=== PATIENT | female | born 1995 | race Caucasian/White ===

== ENCOUNTER 2016-09-13 09:17 | Outpatient (CLI) | payer MEDICAID, OTHER ==
[~2016-09-13] VITALS: Ht 160 cm; Wt 67.1 kg
[2016-09-13] MEDS ORDERED: PRENAT PO (09:38)
[2016-09-13 09:39] VITALS: Ht 160 cm; Wt 67.1 kg
--- NOTE | 2016-09-13 10:07 | TRIAGE ---
OB Triage Datetime Report Generated by CPN: 09/13/2016 10:06 Datetime: 09/13/2016 09:49 Stage of : OB Triage Datetime: 09/13/2016 09:30 Stage of : OB Triage Assessment Type: Triage Maternal Assessment Level of Consciousness: Fully Conscious DTR's/Clonus: DTRs 2+; No Clonus Headache: Denies Blurred Vision: No Respiratory Effort: Unlabored; Regular Rhythm; Equal Expansion Breath Sounds, Left: Clear and Equal Breath Sounds, Right: Clear and Equal Nausea/Vomiting: Denies RUQ Epigastric Pain: Denies Lower Extremities Edema: None Degree: None Upper Extremities Edema: None Degree: None Facial Edema: None Temperature Route: Axillary Fall Risk Assessment History of Falling: (0) No Secondary Diagnosis: (0) No Ambulatory Aid: (0) Bedrest/Nurse Assist IV Therapy: (0) No Gait: (0) Normal/Bedrest/Immobile Mental Status: (0) Oriented to Own Ability Fall Score: 0 Fall Risk Score Definition: No Risk: No action required Labor Evaluation Frequency: X1 Monitor Mode: External Duration (sec)2399: 20 Quality: Mild Pattern: Normal: <= 5 Contractions in 10 Minutes Resting Tone [place]: Relaxed Interventions: Sterile Vaginal Exam Heart Rate FHR Baseline Rate: 135 Monitor Mode: External US Variability: Moderate 6-25 bpm Decelerations: None Category: Category I Pain Assessment Pain Scale: 0 Pain Presence: None/Denies Pain Type: N/A Pain Location: [facility] HAD PAIN DURING NIGHT BUT IT HAS STOPPED Pain Goal: 3 Pain Relief Measures: Comfort Measures Vaginal Exam Dilatation (cms): 0.0 Exam By: S LUCRECIA Membrane Status: Intact Datetime: 09/13/2016 09:29 Time of Arrival: 09/13/2016 09:15 EGA: 39.0 Arrived By: Ambulatory Arrived From: Home Chief Complaint: C/O UC'S LAST NIGHT APPROX Q2 MIN, DENIES BLEEDING OR LEAKING OF FLUID Movement: Present Contractions: Regular Contractions: Q2 Rupture of Membranes: Ruptured Vaginal Bleeding: None Vaginal Discharge: Denies Recent Sexual Intercouse: Denies Abdominal Trauma: Not Applicable Patient Complaints: Contractions; Cramping Time Provider Notified: 09/13/2016 09:50 Provider Notified: EMMY Initial Plan: MONITOR, VE Datetime: 06/13/2016 22:42 Fall Score: 0 Fall Risk Score Definition: No Risk: No action required Datetime: 06/13/2016 22:00 EGA: 25.6
--- NOTE | 2016-11-25 17:32 | DS ---
Date/Time of Note Date/Time of Note DATE: 11/25/16 TIME: 17:28 Obstetrical Discharge Record Final Diagnosis Final Diagnosis: Term not delivered Condition on Discharge Physical Assessment Last Vitals: vs stable,r/o labor not ln active labor bpp 8/8discharged home with followup instruction Voiding: Yes Bowel Movement: Yes Calf Tenderness: No Patient Condition: Good BRANDEE BOOTH MD November 25, 2016 17:32
== END 2016-09-13 09:59 | disposition home or self-care (01) ==
LOC: OBT 09:17 → L-D 09:18 → OBT 09:59
PROVIDERS: ATTEND Obstetrics & Gynecology
DX: O60.03 Preterm labor without delivery, third trimester (principal); Z3A.39 39 weeks gestation of pregnancy
CPT/HCPCS: G0463

== ENCOUNTER 2016-09-18 21:31 | Emergency (ER) | payer MEDICAID ==
[~2016-09-18] VITALS: Ht 160 cm; Wt 68.7 kg
[~2016-09-18 21:31] MED LIST: PRENAT PO
[2016-09-18 21:39] VITALS: Ht 160 cm; Wt 68.7 kg
[2016-09-18] MEDS ORDERED: AMO500 PO (21:57)
[2016-09-18] MEDS ORDERED: ACET500C5 PO (21:57)
--- NOTE | 2016-09-18 22:03 | ERD ---
ER Documentation Chief Complaint Date/Time DATE: 09/18/16 TIME: 21:59 Chief Complaint RIGHT EAR PAIN STARTING TODAY HPI 20-year-old female presents here in emergency complaints of right ear pain started today. Patient described pain as throbbing pain, 6/10 scale, not better or worse with anything. Patient did not take any medications to help with symptoms. Patient denies any ear discharge. Patient denies any problems with hearing. Patient denies any trauma in the ear. Patient denies any bloody discharge from the ear. Patient is approximately 8 weeks , patient does not complain of any abdominal pain, cramping, flank pain, vaginal bleeding, vaginal discharge. Patient does not have any issues or complaints at this time. ROS All systems reviewed and are negative except as per history of present illness. Medications Home Meds Active Scripts Acetaminophen* (Tylophen*) 500 Mg Capsule, 1 CAP PO Q6H Y for PAIN AND OR ELEVATED TEMP, #20 CAP Prov:MARIZOL HARPER [employer] 09/18/16 Amoxicillin* (Amoxicillin*) 500 Mg Cap, 500 MG PO TID for 10 Days, CAP Prov:MARIZOL HARPER [employer] 09/18/16 Reported Medications Multivit/Min/Fol Ac/Iron/Pren* ( S*) 1 Tab Tab, 1 TAB PO DAILY, TAB 09/13/16 Allergies Allergies: Coded Allergies: No Known Allergy (Unverified , 02/06/16) PMhx/Soc Medical and Surgical Hx: pt denies Medical Hx, pt denies Surgical Hx Hx Alcohol Use: No Hx Substance Use: No Hx Tobacco Use: No FmHx Family History: No coronary disease, No diabetes, No other Physical Exam Vitals Vital Signs Date Time Temp Pulse Resp B/P Pulse Ox O2 Delivery O2 Flow Rate FiO2 09/18/16 21:39 96.8 75 16 120/72 99 Physical Exam GENERAL: The patient is well developed and appropriate for usual state of health, in no apparent distress. HEENT: Atraumatic. Ears: Right ear tympanic membrane is noted to be erythematous and bulging. Normal left tympanic membrane, no erythema or bulging. No ear canal swelling. No ear discharge. Nose: normal nasal turbinates , no erythema or swelling. Normal nasal discharge. Throat: oropharynx clear. No tonsillar swelling or tonsillar exudates. No lymphadenopathy. CHEST: Clear to auscultation bilaterally. There are no rales, wheezes or rhonchi. HEART: Regular rate and rhythm. No murmurs, clicks, rubs or gallops. No S3 or S4. ABDOMEN: Soft, nontender and nondistended. Good bowel sounds. No rebound or guarding. No gross peritonitis. No gross organomegaly or masses. No Rich sign or McBurney point tenderness. BACK: No midline or flank tenderness. EXTREMITIES: Equal pulses bilaterally. There is no peripheral clubbing, cyanosis or edema. No focal swelling or erythema. Full range of motion. Grossly neurovascularly intact. NEURO: Alert and oriented. Cranial nerves 2-12 intact. Motor strength in all 4 extremities with 5/5 strength. Sensation grossly intact. Normal speech and gait. SKIN: There is no apparent rash or petechia. The skin is warm and dry. HEMATOLOGIC AND LYMPHATIC: There is no evidence of excessive bruising or lymphedema. No gross cervical, axillary, or inguinal lymphadenopathy. Procedures/MDM Medical decision making: Patient's symptoms most likely consistent with right otitis media. No symptoms of otitis externa or mastoiditis. No foreign body in the ear. No cerumen impaction. No tympanic membrane perforation noted. Prescription is given for amoxicillin, Tylenol, safe for , category B. Patient was advised to avoid using Q-tips to clean the ear. Patient was advised to go to labor and delivery for any issues her complains or labor symptoms, patient was advised to follow with primary care doctor in 2-3 days for reevaluation of symptoms. Patient was advised to return to emergency department for any worsening symptoms. Departure Diagnosis: Primary Impression: Right otitis media Otitis media type: serous Chronicity: acute Recurrence: not specified as recurrent Qualified Code: H65.01 - Right acute serous otitis media, recurrence not specified Condition: Stable Patient Instructions: Otitis Media, Abx Tx (Adult) MARIZOL HARPER NP Sep 18, 2016 22:02
== END 2016-09-18 21:33 | disposition home or self-care (01) ==
LOC: E/R 21:31
DX: H65.01 Acute serous otitis media, right ear (principal)
CPT/HCPCS: 99283

== ENCOUNTER 2016-09-26 03:05 | Inpatient (IN) | payer MEDICAID ==
[~2016-09-26] VITALS: Ht 160 cm; Wt 69.1 kg
[~2016-09-26 03:05] MED LIST changes: +ACET500C5 PO; +AMO500 PO
[2016-09-26 03:32] VITALS: BP 120/69; PULSE 80; RESP 18
[2016-09-26] MEDS ORDERED: FERR325C PO (03:35)
--- NOTE | 2016-09-26 04:39 | RADRPT ---
PROCEDURE: OB ultrasound for biophysical profile CLINICAL INDICATION: Post dates TECHNIQUE: Multiple sonographic images of the pelvis were obtained. Transabdominal view of the gr avid uterus are available for review. The images were reviewed on a PACS workstation. COMPARISON: OB ultrasound of 09/26/2016 FINDINGS: breathing movement = 2/2 tone = 2/2 motion = 2/2 AMY = 2/2 AMY = 10.1 cm Single live intrauterine in cephalic position with cardiac activity at 137 beats per minute. The placenta is anterior and grade III. IMPRESSION: 1. Single live intrauterine gestation. 2. Biophysical profile = 8. 3. AMY = 10.1 cm. RPTAT: HJES .Maycol Vasques MD, Date Time Electronically viewed and signed by .Maycol Vasques MD, on 09/26/2016 04:39 .S/
--- NOTE | 2016-09-26 04:48 | RADRPT ---
PROCEDURE: US OB. CLINICAL INDICATION: Post dates. Clinical estimated gestational age is 40 weeks 6 days with estimat ed date of delivery 09/20/2016 TECHNIQUE: Multiple sonographic images of the pelvis were obtained. Transabdominal imaging only w as performed. The images were reviewed on a PACS workstation. COMPARISON: Biophysical profile ultrasound of 09/26/2016 and OB ultrasound of 07/18/2016 FINDINGS: There is a single live intrauterine gestation. Cardiac activity is present with 129 beats per minut e. There is a cephalic presentation. Measurements were made in order to determine age. The results are as follows: BPD = 9.07 cm, 36 weeks 5 days HC = 32.76 cm, 37 weeks 1 day AC = 34.1 cm, 38 weeks 0 days FL = 7.67 cm, 39 weeks 2 days. Estimated gestational age of approximately 37 weeks 6 days. The estimated date of delivery is 10/11/2016. The EFW = 3379 g, 7 pounds 7 ounces, 21%. The placenta is anterior and grade 2/3. There is no evidence for an abruption. IMPRESSION: 1. Single live intrauterine gestation of approximately 37 weeks 6 days based on ultrasound measurem ents. 2. The estimated date of delivery is 10/11/2016. RPTAT: HJES .Maycol Vasques MD, Date Time Electronically viewed and signed by .Maycol Vasques MD, on 09/26/2016 04:48 .S/
[2016-09-26] MEDS ORDERED: CARBOPROST 250 MCG INJ IM PRN (06:30)
[2016-09-26] MEDS ORDERED: OXYTOCIN 30 UNITS/LR 500 ML IV SCH ×2 (06:30)
[2016-09-26] MEDS ORDERED: BUTORPHANOL 2 MG INJ IV PRN ×2 (06:30)
[2016-09-26] MEDS ORDERED: IBUPROFEN 600 MG TAB PO PRN (06:30)
[2016-09-26] MEDS ORDERED: LACTATED RINGER'S 1,000 ML IV PRN (06:30)
[2016-09-26] MEDS ORDERED: MISOPROSTOL 200 MCG TAB PR PRN (06:30)
[2016-09-26] MEDS ORDERED: METHYLERGONOVINE 0.2 MG INJ IM PRN (06:30)
[2016-09-26] MEDS ORDERED: ACETAMINOPHEN/CODEINE #3 TAB PO PRN (06:30)
[2016-09-26] MEDS ORDERED: OXYTOCIN 30 UNITS/LR 500 ML IV PRN (06:30)
[2016-09-26] MEDS ORDERED: LIDOCAINE 1% (MPF) 30 ML INJ INJ PRN (06:30)
[2016-09-26] MEDS: LACTATED RINGER'S 1,000 ML IV SCH ×2 (06:38→16:35)
[2016-09-26 06:54] LABS: ADD SCAN DIFF NO
[2016-09-26 07:11] LABS: INR 0.97; PROTIME 12.9 Sec (12.2-14.2)
[2016-09-26 07:12] LABS: PARTIAL THROMBOPLASTIN TIME 26.8 Sec (25.0-35.0)
[2016-09-26 07:19] LABS: BASOPHILS % 0.3 % (0.0-2.0); EOSINOPHILS # 0.1 10^3/ul (0.0-0.5); EOSINOPHILS % 1.1 % (0.0-7.0); HEMATOCRIT 36.4 % (37.0-47.0); HEMOGLOBIN 12.4 g/dl (12.0-16.0); LYMPHOCYTES # 2.1 10^3/ul (0.8-2.9); LYMPHOCYTES % 19.3 % (18.0-55.0); MEAN CORPUSCULAR HEMOGLOBIN 31.6 pg (29.0-33.0); MEAN CORPUSCULAR HGB CONC 34.1 g/dl (32.0-37.0); MEAN CORPUSCULAR VOLUME 92.9 fl (72.0-104.0); MEAN PLATELET VOLUME 11.9 fl (7.4-10.4); MONOCYTE # 0.9 10^3/ul (0.3-0.9); MONOCYTES % 8.7 % (0.0-13.0); NEUTROPHIL # 7.4 10^3/ul (1.6-7.5); NEUTROPHILS % 69.1 % (30.0-74.0); PLATELET COUNT 143 10^3/UL (140-415); RED BLOOD COUNT 3.92 10^6/ul (4.20-5.40); WHITE BLOOD COUNT 10.7 10^3/ul (4.8-10.8)
[2016-09-26] MEDS ORDERED: FENTAnyl 2MCG/ML-ROPIV 0.2% 100 ML ONE (11:56)
[2016-09-26] MEDS ORDERED: HYDROmorphONE 1 MG/ML SYG IV PRN ×2 (19:00)
[2016-09-26] MEDS ORDERED: ONDANSETRON 4 MG INJ IV PRN (19:00)
[2016-09-26] MEDS ORDERED: DIPHENHYDRAMINE 50 MG INJ IV PRN (19:00)
[2016-09-26] MEDS ORDERED: NALOXONE (0.4 MG/ML) INJ IV PRN (19:00)
[2016-09-26] MEDS: FENTAnyl 2MCG/ML-ROPIV 0.2% 100 ML BAG EPI SCH (19:45)
[2016-09-27] MEDS: LACTATED RINGER'S 1,000 ML IV SCH ×2 (00:45→08:36)
[2016-09-27] MEDS: FENTAnyl 2MCG/ML-ROPIV 0.2% 100 ML BAG EPI SCH (03:36)
[2016-09-27] MEDS: OXYTOCIN 30 UNITS/LR 500 ML IV SCH ×4 (10:06→16:36)
--- NOTE | 2016-09-27 10:37 | HP ---
Date/Time of Note Date/Time of Note DATE: 09/27/16 TIME: 10:24 OB - History Hx of Present Free Text/Dictation 20 years old female 41 weeks with a EDC of September 20, [address] [facility] in labor admission pelvic examination cervix 8 cm dilated ,90% effacement vertex at -1 station ,occiput posterior position with spontaneous rupture of membrane heart rate category 1 Chief Complaint: Labor pain Estimated Due Date: Sep 20, 2016 : 1 Para: 0 Care: Good Care Ultrasounds: Normal mid trimester US Obstetrical Complications: None Medical Complications: Other (Asthma in childhood hard of hearing both ears) Past Family/Social History * Past Medical, Surgical, Family and Obstetric Histories reviewed from chart. Rubella: immune RPR/VDRL: Negative GBS Status: Negative HBsAG: Negative OB Admission Exam Vital Signs Vital Signs Vital Signs Date Time Temp Pulse Resp B/P Pulse Ox O2 Delivery O2 Flow Rate FiO2 09/26/16 03:32 97.9 80 18 120/69 98 Room Air Physical Exam HEENT: WNL Lungs: Clear, Equal Abdomen: WNL Extremities: Normal Reflexes: Normal Cervical Dilatation: 6cm Effacement: 100% Station: -1 Membranes: Ruptured Amniotic Fluid: Clear Heart Rate: 130's Accelerations: Accelerations Present Decelerations: Early Decelerations Varibility: Moderate Contractions on Admission: < 5 Minutes Apart Intensity: Moderate Last 72 hours Lab Results CBC & BMP 09/26/16 06:25 OB Assessment/Plan Reason for admission: observation Plan: Expectant Management BRANDEE BOOTH MD Sep 27, 2016 10:34
--- NOTE | 2016-09-27 10:45 | LDN ---
Date/Time of Note Date/Time of Note DATE: 09/27/16 TIME: 10:37 Delivery Summary Vacuum-assisted vaginal delivery of a baby girl after 5 hours of complete dilatation and 3 hours of pushing, from occiput posterior position over a small first-degree vaginal laceration which repaired with 2-0 chromic catgut, placenta spontaneous expulsion inspected complete, blood loss 300 cc Assisted Vaginal Delivery: Vacuum Meconium: none Perineum intact?: No Perineal laceration repair: First-degree vaginal laceration repaired with 2-0 chromic catgut Anesthesia type: Epidural Estimated blood loss: 300 Sponge & Needle done & correct: Yes All needle counts correct: Yes Problems: Delivery Information Sex Infant Sex: female Apgars 1 Minute: 9 5 Minute: 9 Suctioning Nose & mouth suctioned at juliana: Yes Delee suction performed: No Umbilical Cord Umbilical cord with: 3 Vessels Cord presentations: nuchal cord Cord Blood was obtained: Yes Mother & Baby Disposition Disposition Mom & Baby to Maternity; Good: Yes BRANDEE BOOTH MD Sep 27, 2016 10:45
[2016-09-27 12:20] VITALS: BP 127/62; PULSE 80; RESP 18
[2016-09-27] MEDS ORDERED: ACETAMINOPHEN/CODEINE #3 TAB PO PRN ×2 (13:00)
[2016-09-27] MEDS ORDERED: BENZOCAINE 20% 56 ML SPRAY TOP PRN (13:00)
[2016-09-27] MEDS ORDERED: LANOLIN 7 GM TUBE TOP PRN (13:00)
[2016-09-27] MEDS ORDERED: ONDANSETRON 4 MG INJ IV PRN (13:00)
[2016-09-27] MEDS ORDERED: ACETAMINOPHEN 325 MG TAB PO PRN (13:00)
[2016-09-27] MEDS ORDERED: OXYCODONE/ASPIRIN (4.88/325) TAB PO PRN ×2 (13:00)
[2016-09-27] MEDS: IBUPROFEN 600 MG TAB PO SCH ×3 (13:00→23:53)
[2016-09-27] MEDS ORDERED: DIBUCAINE 1% 30 GM OINT TOP PRN (13:00)
[2016-09-27] MEDS ORDERED: WITCH HAZEL/GLYCERIN PAD PR PRN (13:00)
[2016-09-27 17:00] VITALS: BP 114/57; PULSE 80; RESP 18
[2016-09-27 19:45] VITALS: BP 112/57; PULSE 86; RESP 18
[2016-09-27] MEDS: SENNA/DOCUSATE NA (8.6MG/50MG) TAB PO SCH (21:16)
[2016-09-27 23:57] VITALS: BP 105/62; PULSE 72; RESP 18
[2016-09-28 04:15] VITALS: BP 96/60; PULSE 88; RESP 18
[2016-09-28] MEDS: IBUPROFEN 600 MG TAB PO SCH ×4 (05:34→23:25)
[2016-09-28 06:54] LABS: ADD SCAN DIFF NO
[2016-09-28 07:02] LABS: BASOPHILS % 0.2 % (0.0-2.0); EOSINOPHILS # 0.2 10^3/ul (0.0-0.5); EOSINOPHILS % 1.3 % (0.0-7.0); HEMATOCRIT 26.8 % (37.0-47.0); HEMOGLOBIN 9.1 g/dl (12.0-16.0); LYMPHOCYTES # 2.7 10^3/ul (0.8-2.9); LYMPHOCYTES % 15.1 % (18.0-55.0); MEAN CORPUSCULAR VOLUME 94.4 fl (72.0-104.0); MEAN PLATELET VOLUME 11.6 fl (7.4-10.4); MONOCYTE # 1.2 10^3/ul (0.3-0.9); MONOCYTES % 6.8 % (0.0-13.0); NEUTROPHIL # 13.4 10^3/ul (1.6-7.5); NEUTROPHILS % 75.9 % (30.0-74.0); PLATELET COUNT 133 10^3/UL (140-415); RED BLOOD COUNT 2.84 10^6/ul (4.20-5.40); RED CELL DISTRIBUTION WIDTH 13.1 % (11.5-14.5); WHITE BLOOD COUNT 17.7 10^3/ul (4.8-10.8)
[2016-09-28 08:20] VITALS: BP 97/68; PULSE 104; RESP 18
[2016-09-28] MEDS ORDERED: INFLUENZA VIRUS VACCINE 0.5 ML (DISPENSING) IM* ONE (09:00)
--- NOTE | 2016-09-28 09:26 | PN ---
Date/Time of Note Date/Time of Note DATE: 09/28/16 TIME: 09:25 OB Subjective Subjective Subjective day 1 Afebrile vital sign stable, abdomen soft, uterus firm, lochia normal, extremity normal Laboratory Tests Test 09/28/16 06:09 Basophils # 0.010^3/ul Basophils % 0.2% Eosinophils # 0.210^3/ul Eosinophils % 1.3% Hematocrit 26.8% Hemoglobin 9.1g/dl Lymphocytes # 2.710^3/ul Lymphocytes % 15.1% Mean Corpuscular Hemoglobin 32.0pg Mean Corpuscular Hemoglobin Concent 34.0g/dl Mean Corpuscular Volume 94.4fl Mean Platelet Volume 11.6fl Monocytes # 1.210^3/ul Monocytes % 6.8% Neutrophils # 13.410^3/ul Neutrophils % 75.9% Nucleated Red Blood Cells # 0.010^3/ul Nucleated Red Blood Cells % 0.0/100WBC Platelet Count 62663^3/UL Red Blood Count 2.8410^6/ul Red Cell Distribution Width 13.1% White Blood Count 17.710^3/ul Current Medications Medications (Trade) Dose Ordered Sig/Delfin Route PRN Reason Start Time Stop Time Status Last Admin Dose Admin Lactated Ringer's 1,000 ml @ 125 mls/hr Q8H IV 09/26/16 06:14 09/27/16 12:39 DC 09/27/16 08:36 Oxytocin/Lactated Ringer's 500 ml @ 0 mls/hr TITRATE IV 09/26/16 06:30 09/27/16 12:39 DC 09/26/16 07:26 Butorphanol Tartrate (Stadol) 1 mg Q2H PRN IV PAIN 09/26/16 06:30 09/27/16 12:39 DC Butorphanol Tartrate (Stadol) 2 mg Q2H PRN IV PAIN 09/26/16 06:30 09/27/16 12:39 DC Lidocaine 30 ml 30 ml ONCE PRN INJ EPISIOTOMY/TEARING 09/26/16 06:30 09/27/16 12:39 DC Oxytocin/Lactated Ringer's 500 ml @ 125 mls/hr ONCE -MAY REPEAT X1 IV 09/26/16 06:30 09/27/16 12:39 DC 09/27/16 10:23 Oxytocin/Lactated Ringer's 500 ml @ 125 mls/hr ONCE IV 09/26/16 06:30 09/27/16 12:39 DC Ibuprofen (Motrin) 600 mg ONCE PRN PO Mild Pain (Pain Score 1-3) 09/26/16 06:30 09/27/16 12:39 DC 09/27/16 10:35 Acetaminophen/ Codeine Phosphate 2 tab 2 tab ONCE PRN PO Moderate to Severe Pain (4-10) 09/26/16 06:30 09/27/16 12:39 DC Lactated Ringer's 1,000 ml @ 2,000 mls/hr Q30M PRN IV PRE-EPIDURAL BOLUS 09/26/16 06:30 09/27/16 12:39 DC 09/26/16 11:51 Oxytocin/Lactated Ringer's 500 ml @ 0 mls/hr ONCE PRN IV For Hemorrhage Management 09/26/16 06:30 09/27/16 12:39 DC Methylergonovine Maleate (Methergine) 0.2 mg ONCE PRN IM VAGINAL BLEEDING 09/26/16 06:30 09/27/16 12:39 DC Carboprost Tromethamine (Hemabate) 250 mcg ONCE PRN IM VAGINAL BLEEDING 09/26/16 06:30 09/27/16 12:39 DC Misoprostol 1000 mcg 1,000 mcg ONCE PRN [place] VAGINAL BLEEDING 09/26/16 06:30 09/27/16 12:39 DC Fentanyl/ Ropivacaine 100 ml @ ud STK-MED ONCE .ROUTE 09/26/16 11:56 09/26/16 11:57 DC Naloxone HCl (Narcan) 0.1 mg Q2M PRN IV FOR RESP RATE 8 OR LESS 09/26/16 19:00 09/27/16 12:38 DC Hydromorphone HCl (Dilaudid) 0.2 mg Q3H PRN IV PAIN LEVEL 1-5 09/26/16 19:00 09/27/16 12:39 DC Hydromorphone HCl (Dilaudid) 0.4 mg Q3H PRN IV PAIN LEVEL 6-10 09/26/16 19:00 09/27/16 12:39 DC Diphenhydramine HCl (Benadryl) 25 mg Q6H PRN IV ITCHING 09/26/16 19:00 09/27/16 12:39 DC Ondansetron HCl (Zofran Inj) 4 mg Q6H PRN IV NAUSEA AND/OR VOMITING 09/26/16 19:00 09/27/16 12:39 DC Fentanyl/ Ropivacaine 100 ml 100 ml EPIDURAL INFUSION EPI 09/26/16 19:00 09/27/16 12:39 DC 09/27/16 03:36 Oxytocin/Lactated Ringer's 500 ml @ 125 mls/hr Q4H IV 09/27/16 12:36 09/27/16 20:35 DC Ibuprofen (Motrin) 600 mg Q6 PO 09/27/16 13:00 09/28/16 05:34 Acetaminophen (Tylenol Tab) 650 mg Q4H PRN PO PAIN LEVEL 1-5 09/27/16 13:00 Acetaminophen/ Codeine Phosphate (Tylenol No.3) 1 tab Q4H PRN PO PAIN LEVEL 1-5 09/27/16 13:00 Acetaminophen/ Codeine Phosphate (Tylenol No.3) 2 tab Q4H PRN PO PAIN LEVEL 6-10 09/27/16 13:00 Oxycodone/Aspirin (Percodan) 1 tab Q3H PRN PO PAIN LEVEL 1-5 09/27/16 13:00 Oxycodone/Aspirin (Percodan) 2 tab Q3H PRN PO PAIN LEVEL 6-10 09/27/16 13:00 Ondansetron HCl (Zofran Inj) 4 mg Q6H PRN IV NAUSEA AND/OR VOMITING 09/27/16 13:00 Senna/Docusate Sodium (Senokot-S) 1 tab BID PO 09/27/16 21:00 09/27/16 21:16 Witch Dorie/ Glycerin (Tucks Pads) 1 pad BEDSIDE MEDICATION PRN [place] HEMORRHOID/EPISIOTMY PAIN 09/27/16 13:00 09/27/16 14:43 Benzocaine (Dermoplast [place]) 1 spray BEDSIDE MEDICATION PRN TOP HEMORRHOID/EPISIOTMY PAIN 09/27/16 13:00 09/27/16 14:43 Dibucaine (Nupercainal) 1 applic BEDSIDE MEDICATION PRN TOP HEMORRHOID/EPISIOTMY PAIN 09/27/16 13:00 Lanolin (Gej-J-Izxxzv) 1 applic BEDSIDE MEDICATION PRN TOP BEDSIDE FOR YASMEEN TO NIPPLES 09/27/16 13:00 Measles/Mumps/ Rubella Vaccine Live (Mmr Ii Vaccine) 0.5 ml ONCE ONCE SC* 09/29/16 09:00 09/29/16 09:01 Influenza Virus Vaccine (Fluzone) 0.5 ml ONCE ONCE IM* 09/28/16 09:00 09/28/16 09:01 BRANDEE PEREZ MD Sep 28, 2016 09:26
--- NOTE | 2016-09-28 09:27 | PD.PPDC ---
FRONT OFFICE CLERK Discharge Instruction Condition Patient Condition: Good Activity/Restrictions Activity: Normal Activity May Shower Restrictions: No Exercising No Lifting No Driving No Sexual Activity Nothing in the Vagina No [place] No Tampons, douche Follow-up Follow-up with Physician: 2, Week/Weeks Provider Information: Appointment clinic in 2 weeks for check Return to clinic for [employer] Instructions: Fever greater than 101 Worsening abdominal pain Excessive Vaginal Bleeding More than 2 pads per hour Unable to tolerate diet OB Instructions: Depression Blurried Vision Headache BRANDEE BOOTH MD Sep 28, 2016 09:27
--- NOTE | 2016-09-28 09:30 | DS ---
Date/Time of Note Date/Time of Note DATE: 09/28/16 TIME: 09:28 Obstetrical Discharge Record Final Diagnosis Final Diagnosis: Term delivered Vaginal Delivery Obstetrical Delivery: Spontaneous Condition on Discharge Physical Assessment Last Vitals: Day 2 post normal vaginal delivery VS stable abdomen soft uterus firm lochia normal extremity normal patient discharged home follow-up instructions to be seen at the clinic in 2 weeks Voiding: Yes Bowel Movement: Yes Breast: Filling Fundus: Firm Calf Tenderness: No Patient Condition: Good BRANDEE BOOTH MD Sep 28, 2016 09:29
--- NOTE | 2016-09-28 09:39 | PN ---
Date/Time of Note Date/Time of Note DATE: 09/28/16 TIME: 09:34 OB Subjective Subjective Subjective VS stable, abdomen soft uterus firm lochia normal, vulva, both labia swollen, soft but not tender, covered by icepack intermittently. Laboratory Tests Test 09/28/16 06:09 Basophils # 0.010^3/ul Basophils % 0.2% Eosinophils # 0.210^3/ul Eosinophils % 1.3% Hematocrit 26.8% Hemoglobin 9.1g/dl Lymphocytes # 2.710^3/ul Lymphocytes % 15.1% Mean Corpuscular Hemoglobin 32.0pg Mean Corpuscular Hemoglobin Concent 34.0g/dl Mean Corpuscular Volume 94.4fl Mean Platelet Volume 11.6fl Monocytes # 1.210^3/ul Monocytes % 6.8% Neutrophils # 13.410^3/ul Neutrophils % 75.9% Nucleated Red Blood Cells # 0.010^3/ul Nucleated Red Blood Cells % 0.0/100WBC Platelet Count 10300^3/UL Red Blood Count 2.8410^6/ul Red Cell Distribution Width 13.1% White Blood Count 17.710^3/ul Current Medications Medications (Trade) Dose Ordered Sig/Delfin Route PRN Reason Start Time Stop Time Status Last Admin Dose Admin Lactated Ringer's 1,000 ml @ 125 mls/hr Q8H IV 09/26/16 06:14 09/27/16 12:39 DC 09/27/16 08:36 Oxytocin/Lactated Ringer's 500 ml @ 0 mls/hr TITRATE IV 09/26/16 06:30 09/27/16 12:39 DC 09/26/16 07:26 Butorphanol Tartrate (Stadol) 1 mg Q2H PRN IV PAIN 09/26/16 06:30 09/27/16 12:39 DC Butorphanol Tartrate (Stadol) 2 mg Q2H PRN IV PAIN 09/26/16 06:30 09/27/16 12:39 DC Lidocaine 30 ml 30 ml ONCE PRN INJ EPISIOTOMY/TEARING 09/26/16 06:30 09/27/16 12:39 DC Oxytocin/Lactated Ringer's 500 ml @ 125 mls/hr ONCE -MAY REPEAT X1 IV 09/26/16 06:30 09/27/16 12:39 DC 09/27/16 10:23 Oxytocin/Lactated Ringer's 500 ml @ 125 mls/hr ONCE IV 09/26/16 06:30 09/27/16 12:39 DC Ibuprofen (Motrin) 600 mg ONCE PRN PO Mild Pain (Pain Score 1-3) 09/26/16 06:30 09/27/16 12:39 DC 09/27/16 10:35 Acetaminophen/ Codeine Phosphate 2 tab 2 tab ONCE PRN PO Moderate to Severe Pain (4-10) 09/26/16 06:30 09/27/16 12:39 DC Lactated Ringer's 1,000 ml @ 2,000 mls/hr Q30M PRN IV PRE-EPIDURAL BOLUS 09/26/16 06:30 09/27/16 12:39 DC 09/26/16 11:51 Oxytocin/Lactated Ringer's 500 ml @ 0 mls/hr ONCE PRN IV For Hemorrhage Management 09/26/16 06:30 09/27/16 12:39 DC Methylergonovine Maleate (Methergine) 0.2 mg ONCE PRN IM VAGINAL BLEEDING 09/26/16 06:30 09/27/16 12:39 DC Carboprost Tromethamine (Hemabate) 250 mcg ONCE PRN IM VAGINAL BLEEDING 09/26/16 06:30 09/27/16 12:39 DC Misoprostol 1000 mcg 1,000 mcg ONCE PRN [place] VAGINAL BLEEDING 09/26/16 06:30 09/27/16 12:39 DC Fentanyl/ Ropivacaine 100 ml @ ud STK-MED ONCE .ROUTE 09/26/16 11:56 09/26/16 11:57 DC Naloxone HCl (Narcan) 0.1 mg Q2M PRN IV FOR RESP RATE 8 OR LESS 09/26/16 19:00 09/27/16 12:38 DC Hydromorphone HCl (Dilaudid) 0.2 mg Q3H PRN IV PAIN LEVEL 1-5 09/26/16 19:00 09/27/16 12:39 DC Hydromorphone HCl (Dilaudid) 0.4 mg Q3H PRN IV PAIN LEVEL 6-10 09/26/16 19:00 09/27/16 12:39 DC Diphenhydramine HCl (Benadryl) 25 mg Q6H PRN IV ITCHING 09/26/16 19:00 09/27/16 12:39 DC Ondansetron HCl (Zofran Inj) 4 mg Q6H PRN IV NAUSEA AND/OR VOMITING 09/26/16 19:00 09/27/16 12:39 DC Fentanyl/ Ropivacaine 100 ml 100 ml EPIDURAL INFUSION EPI 09/26/16 19:00 09/27/16 12:39 DC 09/27/16 03:36 Oxytocin/Lactated Ringer's 500 ml @ 125 mls/hr Q4H IV 09/27/16 12:36 09/27/16 20:35 DC Ibuprofen (Motrin) 600 mg Q6 PO 09/27/16 13:00 09/28/16 05:34 Acetaminophen (Tylenol Tab) 650 mg Q4H PRN PO PAIN LEVEL 1-5 09/27/16 13:00 Acetaminophen/ Codeine Phosphate (Tylenol No.3) 1 tab Q4H PRN PO PAIN LEVEL 1-5 09/27/16 13:00 Acetaminophen/ Codeine Phosphate (Tylenol No.3) 2 tab Q4H PRN PO PAIN LEVEL 6-10 09/27/16 13:00 Oxycodone/Aspirin (Percodan) 1 tab Q3H PRN PO PAIN LEVEL 1-5 09/27/16 13:00 Oxycodone/Aspirin (Percodan) 2 tab Q3H PRN PO PAIN LEVEL 6-10 09/27/16 13:00 Ondansetron HCl (Zofran Inj) 4 mg Q6H PRN IV NAUSEA AND/OR VOMITING 09/27/16 13:00 Senna/Docusate Sodium (Senokot-S) 1 tab BID PO 09/27/16 21:00 09/27/16 21:16 Witch Dorie/ Glycerin (Tucks Pads) 1 pad BEDSIDE MEDICATION PRN [place] HEMORRHOID/EPISIOTMY PAIN 09/27/16 13:00 09/27/16 14:43 Benzocaine (Dermoplast [place]) 1 spray BEDSIDE MEDICATION PRN TOP HEMORRHOID/EPISIOTMY PAIN 09/27/16 13:00 09/27/16 14:43 Dibucaine (Nupercainal) 1 applic BEDSIDE MEDICATION PRN TOP HEMORRHOID/EPISIOTMY PAIN 09/27/16 13:00 Lanolin (Ofz-[id number]) 1 applic BEDSIDE MEDICATION PRN TOP BEDSIDE FOR YASMEEN TO NIPPLES 09/27/16 13:00 Measles/Mumps/ Rubella Vaccine Live (Mmr Ii Vaccine) 0.5 ml ONCE ONCE SC* 09/29/16 09:00 09/29/16 09:01 Influenza Virus Vaccine (Fluzone) 0.5 ml ONCE ONCE IM* 09/28/16 09:00 09/28/16 09:01 BRANDEE PEREZ MD Sep 28, 2016 09:39
[2016-09-28] MEDS: SENNA/DOCUSATE NA (8.6MG/50MG) TAB PO SCH ×2 (10:08→21:02)
[2016-09-28 16:15] VITALS: BP 101/60; PULSE 98; RESP 19
[2016-09-28 19:30] VITALS: BP 112/57; PULSE 96; RESP 18
[2016-09-29 03:40] VITALS: BP 102/61; PULSE 72; RESP 19
[2016-09-29] MEDS: IBUPROFEN 600 MG TAB PO SCH ×2 (05:42→11:12)
[2016-09-29 07:30] LABS: ADD SCAN DIFF NO
[2016-09-29 07:34] LABS: BASOPHILS % 0.3 % (0.0-2.0); EOSINOPHILS # 0.2 10^3/ul (0.0-0.5); EOSINOPHILS % 2.1 % (0.0-7.0); HEMOGLOBIN 8.8 g/dl (12.0-16.0); LYMPHOCYTES # 1.7 10^3/ul (0.8-2.9); LYMPHOCYTES % 15.2 % (18.0-55.0); MEAN CORPUSCULAR HEMOGLOBIN 31.1 pg (29.0-33.0); MEAN CORPUSCULAR HGB CONC 32.6 g/dl (32.0-37.0); MEAN CORPUSCULAR VOLUME 95.4 fl (72.0-104.0); MEAN PLATELET VOLUME 11.6 fl (7.4-10.4); MONOCYTE # 0.9 10^3/ul (0.3-0.9); MONOCYTES % 8.1 % (0.0-13.0); NEUTROPHIL # 8.2 10^3/ul (1.6-7.5); NEUTROPHILS % 73.2 % (30.0-74.0); PLATELET COUNT 136 10^3/UL (140-415); RED BLOOD COUNT 2.83 10^6/ul (4.20-5.40); WHITE BLOOD COUNT 11.2 10^3/ul (4.8-10.8)
[2016-09-29 08:30] VITALS: BP 99/55; PULSE 72; RESP 18
[2016-09-29] MEDS: SENNA/DOCUSATE NA (8.6MG/50MG) TAB PO SCH (09:00)
[2016-09-29] MEDS ORDERED: MEASLES,MUMPS,RUBELLA VACCINE INJ SC* ONE (09:00)
== END 2016-09-29 13:00 | disposition home or self-care (01) | DRG 775 ==
LOC: L-D 03:05 → OBT 03:05 → L-D 06:15 → OBT 06:15 → L-D 07:49 → PP1 09-27 12:34
PROVIDERS: ADMIT Obstetrics & Gynecology; ATTEND Obstetrics & Gynecology
PROC: 10E0XZZ Delivery of Products of Conception, External Approach (ICD-10-PCS; principal; 2016-09-27)
PROC: 0HQ9XZZ Repair Perineum Skin, External Approach (ICD-10-PCS; 2016-09-27)
DX: O70.0 First degree perineal laceration during delivery (principal); O48.0 Post-term pregnancy; O69.81X0 Labor and delivery complicated by cord around neck, without compression, not applicable or unspecified; Z3A.41 41 weeks gestation of pregnancy; Z37.0 Single live birth
CPT/HCPCS: 36415; 62319; 76815; 76818; 85025; 85610; 85730; 86592; 86900; 86901; 90686; 96360; 96361; G0463; J2590; J3010; J7120

== ENCOUNTER 2018-02-12 08:15 | Outpatient (CLI) | END 2018-02-12 11:48 | disposition home or self-care (01) ==

== ENCOUNTER 2018-02-13 17:17 | Outpatient (CLI) | END 2018-02-13 20:35 | disposition home or self-care (01) ==

== ENCOUNTER 2018-02-18 19:01 | Outpatient (CLI) | END 2018-02-18 22:12 | disposition home or self-care (01) ==

== ENCOUNTER 2018-02-21 08:05 | Inpatient (IN) | END 2018-02-24 13:35 | disposition home or self-care (01) | DRG 775 ==